=== PATIENT | female | born 1945 | race Caucasian/White ===

== ENCOUNTER 2025-03-17 07:14 | Outpatient (CLI) | payer MEDICARE, OTHER ==
[2025-03-17 08:22] LABS: Estimated GFR - POC 58.0
[2025-03-17] MEDS ORDERED: Iopamidol 300 61% 100 ML VIAL FS ONE (10:17)
== END 2025-03-17 07:15 | disposition home or self-care (01) ==
LOC: CSHCT 07:14
PROVIDERS: ATTEND Internal Medicine Hematology & Oncology
DX: C18.7 Malignant neoplasm of sigmoid colon (principal)
CPT/HCPCS: 71260; 74183; 82565